=== PATIENT | female | born 1995 | race Caucasian/White ===

== ENCOUNTER 2017-03-16 22:13 | Emergency (ER) | payer BC ==
[~2017-03-16] VITALS: Ht 167.6 cm; Wt 65.6 kg
[~2017-03-16 22:13] MED LIST: DOCU-144 PO; IBUP-1542 PO; POLY17PO6 PO; TRAM50TA2 PO
[2017-03-16 22:14] VITALS: Ht 167.6 cm; Wt 65.6 kg
--- NOTE | 2017-03-17 01:19 | ERD ---
ER Documentation Chief Complaint Chief Complaint BIB SELF, CC: HEADACHE X 1 DAY HPI 1-year-old female presents with headache for 1 day. It is frontal and bilateral and she states it feels like a band. She has a history of headaches and since they come intermittently. She takes Motrin and she states that sometimes the Motrin helps but sometimes it does not. She states she would like a CT scan. No nausea vomiting. No fever. No trauma. ROS All systems reviewed and are negative except as per history of present illness. Medications Home Meds Active Scripts Polyethylene Glycol* (Miralax*) 17 Gm Powd.pack, 17 GM PO DAILY, #7 Prov:DMITRY [employer] 10/31/15 Tramadol HCl (Tramadol HCl) 50 Mg Tablet, 50 MG PO Q4 Y for SEVERE PAIN LEVEL 7- 10, #20 TAB Prov:DMITRY [employer] 10/31/15 Docusate Sodium* (Colace*) 100 Mg Capsule, 100 MG PO TID, #30 CAP Prov:DMITRY [employer] 10/31/15 Ibuprofen* (Motrin*) 600 Mg Tab, 600 MG PO Q6, #30 TAB Prov:POLA HARRISON 07/31/15 Allergies Allergies: Coded Allergies: No Known Allergy (Unverified , 07/30/15) PMhx/Soc Medical and Surgical Hx: pt denies Medical Hx, pt denies Surgical Hx History of Surgery: No Anesthesia Reaction: No Hx Neurological Disorder: No Hx Respiratory Disorders: No Hx Cardiac Disorders: No Hx Psychiatric Problems: No Hx Miscellaneous Medical Probl: No Hx Alcohol Use: No Hx Substance Use: No Hx Tobacco Use: No Smoking Status: Never smoker FmHx Family History: No diabetes Physical Exam Vitals Vital Signs Date Time Temp Pulse Resp B/P Pulse Ox O2 Delivery O2 Flow Rate FiO2 03/16/17 22:14 98.1 60 18 112/62 100 Physical Exam INITIAL VITAL SIGNS: Reviewed by me GENERAL: Awake, alert and oriented x 4, well appearing, nontoxic, speaking in full sentences. No acute distress HEAD: Atraumatic NECK: Supple. No masses. Full range of motion. No meningismus. No midline tenderness. EYES: EOMI. PERRL. THROAT: No tonilar erythema or edema. No exudates. Uvula midline. No kissing tonsils. RESPIRATORY: Clear to auscultation bilaterally. Symmetric chest wall rise. No wheezing or rales. No accessory muscle use. CV: Regular rate and rhythm. No murmurs, rubs, or gallops. NEUROLOGIC: Normal mental status and speech. Face is symmetric. Moves all extremities equally. Motor and sensory distally intact. Normal coordination. Ambulates with a strong steady gait. Tree Thinner strength 5 out of 5 bilaterally, finger to nose within normal limits, cranial nerves II through XII intact, rapid alternating movements within normal limit Procedures/MDM Patient states she has a headache. The differential diagnosis includes but is not limited to subdural hematoma, epidural hematoma, intracerebral hemorrhage, occult trauma, CVA, meningitis, encephalitis, hypertension, tension, migraine, cluster, cervical spine disease, and others. Her examination and neurological examination is normal. She states she was a CT scan. After I explained her the risks and benefits of CT scan including radiation she stated that she would think about it and let me know if she wants a CT scan however it was later found out that she eloped. Departure Diagnosis: Primary Impression: Headache Condition: Stable TEJAL YUSUF PA-C Mar 17, 2017 01:19
== END 2017-03-17 01:56 | disposition left against medical advice (07) ==
LOC: FTE 22:13
DX: R51 Headache (principal)
CPT/HCPCS: 99283